=== PATIENT | female | born 1990 | race African-American/Black ===

== ENCOUNTER 2017-01-19 06:23 | Emergency (ER) | payer OTHER ==
[~2017-01-19] VITALS: Ht 157.5 cm; Wt 67.0 kg
[~2017-01-19 06:23] MED LIST: RANI150T PO
[2017-01-19 06:25] VITALS: BP 138/94; PULSE 76; RESP 16; TEMP 98.1; O2SAT 100
[2017-01-19] MEDS ORDERED: SODIUM CHLOR 0.9% 1000 ML INJ 1,000 ML IV SCH (07:08)
--- NOTE | 2017-01-19 07:13 | PD ---
HPI Chief Complaint: Chest Pain Time Seen by Provider: 07:01 Travel History International Travel<30 days: No Contact w/Intl Traveler<30days: No Traveled to known affect area: No History of Present Illness HPI The patient is a 26-year-old Jenna female who presents to the emergency department for epigastric abdominal pain and chest pain. The patient notes a 4 day history of chest pain which is located substernal, burning and pressure related, occasionally sharp, radiating to the back. She also complains of postprandial symptoms and states that spicy foods will exacerbate her symptoms. The patient does have a history of significant GERD and currently takes Protonix. The patient states she was supposed to follow-up with a human resources hr representative on an outpatient basis but has not seen a human resources hr representative as of yet. She denies any current shortness of breath, nausea, vomiting, or diarrhea. The patient denies any acute shortness of breath and states her abdominal pain is currently resolved. She also complains of a flushing feeling over the entire body over the last several days without any actual fever. Symptoms are moderate, exacerbated after eating, and there are no current alleviating factors. The patient states her last menstrual cycle was 2 weeks ago, denies . She denies any history of surgeries. She drinks alcohol occasionally. [facility] Past Medical History Narrative Medical GERD GERD: Yes Immunizations Current: Yes LMP: 01/05/17 Past Surgical History Surgical History: No Previous Surgery Social History Alcohol Use: Yes (occasional) Tobacco Use: No Substance Use: No Allergies-Medications (Allergen,Severity, Reaction): Coded Allergies: No Known Allergies (Unverified , 01/19/17) Reported Meds & Prescriptions Reported Meds & Active Scripts Active Reported Protonix (Pantoprazole Sodium) 40 Mg Tab 40 Mg PO DAILY Review of Systems Except as stated in HPI: all other systems reviewed are Neg General / Constitutional: No: Fever HENT: No: Lightheadedness Cardiovascular: Positive: Chest Pain or Discomfort Respiratory: No: Shortness of Breath Gastrointestinal: Positive: Abdominal Pain, Indigestion, No: Nausea, Vomiting , Diarrhea, Loss of Appetite Musculoskeletal: No: Myalgias, Arthralgias Skin: No Rash Physical Exam Narrative GENERAL: Awake, alert, pleasant 26-year-old female who appears her stated age and is in no acute respiratory distress. SKIN: Warm and dry. HEAD: Atraumatic. Normocephalic. EYES: Pupils equal and round. No scleral icterus. No injection or drainage. ENT: No nasal bleeding or discharge. Mucous membranes pink and moist. NECK: Trachea midline. No JVD. CARDIOVASCULAR: Regular rate and rhythm. No murmur appreciated. RESPIRATORY: No accessory muscle use. Clear to auscultation. Breath sounds equal bilaterally. GASTROINTESTINAL: Abdomen soft, mild right upper quadrant epigastric tenderness. No rebound tenderness. MUSCULOSKELETAL: No obvious deformities. No clubbing. No cyanosis. No edema. NEUROLOGICAL: Awake and alert. No obvious cranial nerve deficits. Motor grossly within normal limits. Normal speech. PSYCHIATRIC: Appropriate mood and affect; insight and judgment normal. Data Data Last Documented VS Vital Signs Date Time Temp Pulse Resp B/P Pulse Ox O2 Delivery O2 Flow Rate FiO2 01/19/17 07:24 18 100 Room Air 01/19/17 06:25 98.1 76 138/94 Orders Complete Blood Count With Diff (01/19/17 07:08) Comprehensive Metabolic Panel (01/19/17 07:08) Lipase (01/19/17 07:08) Urinalysis - C+S If Indicated (01/19/17 07:08) Us Abdomen Gallbladder (01/19/17 ) Iv Access Insert/Monitor (01/19/17 07:08) Ecg Monitoring (01/19/17 07:08) Oximetry (01/19/17 07:08) Sodium Chlor 0.9% 1000 Ml Inj (Ns 1000 M (01/19/17 07:08) Sodium Chloride 0.9% Flush (Ns Flush) (01/19/17 07:15) Electrocardiogram (01/19/17 07:08) Ed Urine Pregnancytest Poc (01/19/17 07:08) Troponin I (01/19/17 07:13) Creatine Kinase (Cpk) (01/19/17 07:13) Labs Laboratory Tests Test 01/19/17 01/19/17 07:23 07:28 Urine Color YELLOW Urine Turbidity HAZY Urine pH 5.5 Urine Specific [place] 1.022 Urine Protein TRACE mg/dL Urine Glucose (UA) NEG mg/dL Urine Ketones TRACE mg/dL Urine Occult Blood TRACE Urine Nitrite NEG Urine Bilirubin NEG Urine Urobilinogen 2.0 MG/DL Urine Leukocyte Esterase NEG Urine RBC 3 /hpf Urine WBC 1 /hpf Urine Squamous Epithelial 6 /hpf Cells Urine Mucus MANY /lpf Microscopic Urinalysis Comment CULT NOT INDICATED White Blood Count 4.7 TH/MM3 Red Blood Count 4.10 MIL/MM3 Hemoglobin 12.6 GM/DL Hematocrit 38.7 % Mean Corpuscular Volume 94.4 FL Mean Corpuscular Hemoglobin 30.6 PG Mean Corpuscular Hemoglobin 32.5 % Concent Red Cell Distribution Width 14.7 % Platelet Count 273 TH/MM3 Mean Platelet Volume 7.8 FL Neutrophils (%) (Auto) 56.3 % Lymphocytes (%) (Auto) 33.4 % Monocytes (%) (Auto) 8.7 % Eosinophils (%) (Auto) 1.1 % Basophils (%) (Auto) 0.5 % Neutrophils # (Auto) 2.7 TH/MM3 Lymphocytes # (Auto) 1.6 TH/MM3 Monocytes # (Auto) 0.4 TH/MM3 Eosinophils # (Auto) 0.1 TH/MM3 Basophils # (Auto) 0.0 TH/MM3 CBC Comment DIFF FINAL Differential Comment Sodium Level 140 MEQ/L Potassium Level 3.5 MEQ/L Chloride Level 103 MEQ/L Carbon Dioxide Level 28.3 MEQ/L Anion Gap 9 MEQ/L Blood Urea Nitrogen 6 MG/DL Creatinine 0.77 MG/DL Estimat Glomerular Filtration 111 ML/MIN Rate Random Glucose 88 MG/DL Calcium Level 8.6 MG/DL Total Bilirubin 0.9 MG/DL Aspartate Amino Transf 33 U/L (AST/SGOT) Alanine Aminotransferase 37 U/L (ALT/SGPT) Alkaline Phosphatase 70 U/L Total Creatine Kinase 107 U/L Troponin I LESS THAN 0.02 NG/ML Total Protein 7.3 GM/DL Albumin 3.7 GM/DL Lipase 233 U/L [facility] Medical Decision Making Medical Screen Exam Complete: Yes Emergency Medical Condition: Yes Medical Record Reviewed: Yes Interpretation(s) EKG reveals normal sinus rhythm with a rate of 70. Nonspecific T wave changes. Laboratory Tests Test 01/19/17 01/19/17 07:23 07:28 Urine Color YELLOW Urine Turbidity HAZY Urine pH 5.5 Urine Specific [place] 1.022 Urine Protein TRACE mg/dL Urine Glucose (UA) NEG mg/dL Urine Ketones TRACE mg/dL Urine Occult Blood TRACE Urine Nitrite NEG Urine Bilirubin NEG Urine Urobilinogen 2.0 MG/DL Urine Leukocyte Esterase NEG Urine RBC 3 /hpf Urine WBC 1 /hpf Urine Squamous Epithelial 6 /hpf Cells Urine Mucus MANY /lpf Microscopic Urinalysis Comment CULT NOT INDICATED White Blood Count 4.7 TH/MM3 Red Blood Count 4.10 MIL/MM3 Hemoglobin 12.6 GM/DL Hematocrit 38.7 % Mean Corpuscular Volume 94.4 FL Mean Corpuscular Hemoglobin 30.6 PG Mean Corpuscular Hemoglobin 32.5 % Concent Red Cell Distribution Width 14.7 % Platelet Count 273 TH/MM3 Mean Platelet Volume 7.8 FL Neutrophils (%) (Auto) 56.3 % Lymphocytes (%) (Auto) 33.4 % Monocytes (%) (Auto) 8.7 % Eosinophils (%) (Auto) 1.1 % Basophils (%) (Auto) 0.5 % Neutrophils # (Auto) 2.7 TH/MM3 Lymphocytes # (Auto) 1.6 TH/MM3 Monocytes # (Auto) 0.4 TH/MM3 Eosinophils # (Auto) 0.1 TH/MM3 Basophils # (Auto) 0.0 TH/MM3 CBC Comment DIFF FINAL Differential Comment Sodium Level 140 MEQ/L Potassium Level 3.5 MEQ/L Chloride Level 103 MEQ/L Carbon Dioxide Level 28.3 MEQ/L Anion Gap 9 MEQ/L Blood Urea Nitrogen 6 MG/DL Creatinine 0.77 MG/DL Estimat Glomerular Filtration 111 ML/MIN Rate Random Glucose 88 MG/DL Calcium Level 8.6 MG/DL Total Bilirubin 0.9 MG/DL Aspartate Amino Transf 33 U/L (AST/SGOT) Alanine Aminotransferase 37 U/L (ALT/SGPT) Alkaline Phosphatase 70 U/L Total Creatine Kinase 107 U/L Troponin I LESS THAN 0.02 NG/ML Total Protein 7.3 GM/DL Albumin 3.7 GM/DL Lipase 233 U/L Last Impressions Gall Bladder Ultrasound 01/19/17 0000 Signed Impressions: Service Date/Time: Thursday, January 19, 2017 07:53 - CONCLUSION: Normal examination. Suleiman Tam Jr., MD Differential Diagnosis Differential diagnosis includes GERD, gastritis, esophageal spasm, biliary colic , cholecystitis, pancreatitis, Narrative Course IV was established, labs were drawn and sent, and the patient was placed on cardiac telemetry monitoring and continuous pulse oximetry monitoring. EKG was ordered and interpreted. Ultrasound the gallbladder was ordered. The patient' s currently asymptomatic, therefore, no acute pain medications or antiemetics were administered. Bedside UA test is negative. UA reveals trace ketones and blood, otherwise unremarkable. White count is normal. The patient' s complete metabolic profile is unremarkable. Lipase is within normal limits. Troponin and CPK are normal. Ultrasound of the gallbladder is unremarkable. The patient is advised to follow-up with gastroenterology on an outpatient basis , she may benefit from further evaluation by EGD. The patient will be provided a copy of her labs and ultrasound report at discharge and is advised to follow- up with gastroenterology and her primary physician. Diagnosis Primary Impression: GERD (gastroesophageal reflux disease) Qualified Code: K21.9 - Gastroesophageal reflux disease, esophagitis presence not specified Additional Impression: Atypical chest pain Patient Instructions: General Instructions Additional Instructions: Continue Protonix as previously directed. Please provide a patient a copy of her ultrasound results and lab results at discharge. Follow-up with gastroenterology. Return if symptoms worsen or progress. Disposition: 01 DISCHARGE HOME Condition: Stable Humza Chatman MD Jan 19, 2017 07:13
[2017-01-19] MEDS ORDERED: SODIUM CHLORIDE 0.9% FLUSH 10 ML FLUSH IV FLUSH PRN (07:15)
[2017-01-19 07:19] VITALS: O2SAT 100
[2017-01-19] MEDS ORDERED: PROT40TA PO (07:25)
[2017-01-19 07:38] LABS: AUTOMATED NEUTROPHIL # 2.7 TH/MM3 (1.8-7.7); BASOPHIL % 0.5 % (0.0-2.0); EOSINOPHIL # 0.1 TH/MM3 (0-0.4); EOSINOPHIL % 1.1 % (0.0-4.0); HEMATOCRIT 38.7 % (35.0-46.0); HEMO FLAGS DIFF FINAL; LYMPH % 33.4 % (9.0-44.0); LYMPHOCYTE # 1.6 TH/MM3 (1.0-4.8); MEAN CELL VOLUME 94.4 FL (80.0-100.0); MEAN CORPUSCULAR HEMOGLOBIN 30.6 PG (27.0-34.0); MEAN CORPUSCULAR HGB CONC 32.5 % (32.0-36.0); MONO % 8.7 % (0.0-8.0); NEUT % 56.3 % (16.0-70.0); PLATELET COUNT 273 TH/MM3 (150-450); RED CELL DISTRIBUTION WIDTH 14.7 % (11.6-17.2); WHITE BLOOD COUNT 4.7 TH/MM3 (4.0-11.0)
[2017-01-19 07:48] LABS: BLOOD, URINE TRACE (NEG); COMMENT (UR) CULT NOT INDICATED; CULTURE IF INDICATED CULT NOT INDICATED; GLUCOSE,URINE NEG (NEG); KETONE, URINE TRACE mg/dL (NEG); MUCUS URINE MANY /lpf (OCC); NITRITE,URINE NEG (NEG); PH, URINE 5.5 (5.0-8.5); SQUAMOUS EPITHELIAL CELL URINE 6 /hpf (0-5); URINE COLOR YELLOW (YELLW/STRAW)
[2017-01-19 07:53] LABS: ANION GAP 9 MEQ/L (5-15); AST (GOT) 33 U/L (15-37); BICARBONATE 28.3 MEQ/L (21.0-32.0); BLOOD UREA NITROGEN 6 MG/DL (7-18); CHLORIDE 103 MEQ/L (98-107); GLOMERULAR FILTRATION RATE 111 ML/MIN (>89); POTASSIUM 3.5 MEQ/L (3.5-5.1); SODIUM (NA) 140 MEQ/L (136-145)
[2017-01-19 07:56] LABS: ALKALINE PHOSPHATASE 70 U/L (45-117); ALT (GPT) 37 U/L (10-53); CREATINE KINASE 107 U/L (26-192); TOTAL BILIRUBIN ADULT 0.9 MG/DL (0.2-1.0)
--- NOTE | 2017-01-19 08:49 | RADRPT ---
EXAM DATE/TIME: 01/19/2017 07:53 [facility] COMPARISON: No previous studies available for comparison. INDICATIONS : Right upper quadrant pain. MEDICAL HISTORY : Gastroesophageal reflux disease. Polycystic ovarian syndrome. SURGICAL HISTORY : ENCOUNTER: Initial ACUITY: 4-6 days PAIN SCORE: 4/10 LOCATION: Right upper quadrant MEASUREMENTS: LIVER: 15.0 cm length COMMON DUCT: 4 mm RIGHT KIDNEY: 11.1 x 4.2 x 4.0 cm FINDINGS: LIVER: Normal echotexture without focal lesion or ductal dilatation. COMMON DUCT: No intraluminal mass or stone visualized. GALLBLADDER: Contains no stones, demonstrates no wall thickening or pericholecystic fluid. PANCREAS: The visualized portions are within normal limits. RIGHT KIDNEY: No evidence of hydronephrosis, stone, or mass. CONCLUSION: Normal examination. Suleiman Tam Jr., MD on January 19, 2017 at 8:45 Board Certified Radiologist. This report was verified electronically.
[2017-01-19 09:39] VITALS: BP 128/71
--- NOTE | 2017-01-20 21:42 | EKG ---
Date Performed: 01/19/2017 Time Performed: 07:15:14 PTAGE: 26 years EKG: Sinus rhythm NONSPECIFIC T-WAVE ABNORMALITY Since previous tracing, no significant change noted BORDERLINE ECG PREVIOUS TRACING : 10/19/2016 19.36 DOCTOR: Siena Malik Interpretating Date/Time 01/20/2017 21:41:13
== END 2017-01-19 09:41 | disposition home or self-care (01) ==
LOC: NEPE 06:23
DX: K21.9 Gastro-esophageal reflux disease without esophagitis (principal); R07.89 Other chest pain; R94.31 Abnormal electrocardiogram [ECG] [EKG]; Z87.19 Personal history of other diseases of the digestive system
CPT/HCPCS: 76705; 80053; 81001; 82550; 83690; 84484; 84703; 85025; 93005; 96360; 99285; J7030

== ENCOUNTER 2017-05-23 21:52 | Emergency (ER) | payer OTHER ==
[~2017-05-23] VITALS: Ht 160 cm; Wt 63.5 kg
[~2017-05-23 21:52] MED LIST changes: +PROT40TA PO; -RANI150T PO
[2017-05-23 21:54] VITALS: BP 111/66; PULSE 96; RESP 15; TEMP 98.3; O2SAT 97
--- NOTE | 2017-05-23 22:43 | PD ---
HPI Chief Complaint: Headache Time Seen by Provider: 22:34 Travel History International Travel<30 days: No Contact w/Intl Traveler<30days: No Traveled to known affect area: No History of Present Illness HPI 27 years old female was brought in by mom for lethargy. Patient has history alcohol abuse. Mother states that patient got drunk at least 3 times a week for the past year. Patient states that she had mild aching headache. Patient denies any visual change. Patient denies any chest pain or shortness of breath. Patient denies abdominal pain. Mom reported no vomiting or diarrhea. PFSH Past Medical History Medical History: Denies Significant Hx GERD: Yes Reproductive: Yes (POLYCYSTIC OVARIAN DX) Immunizations Current: Yes Tetanus Vaccination: < 5 Years Influenza Vaccination: No ?: Unknown LMP: 04/28/17 Past Surgical History Surgical History: No Previous Surgery Social History Alcohol Use: Yes (couple shots a week) Tobacco Use: No Substance Use: No Allergies-Medications (Allergen,Severity, Reaction): Coded Allergies: No Known Allergies (Unverified , 05/23/17) Reported Meds & Prescriptions Reported Meds & Active Scripts Active No Active Prescriptions or Reported Medications Review of Systems General / Constitutional: No: Fever Eyes: No: Visual changes HENT: Positive: Headaches Cardiovascular: No: Chest Pain or Discomfort Respiratory: No: Shortness of Breath Gastrointestinal: No: Abdominal Pain Genitourinary: No: Dysuria Musculoskeletal: No: Pain Skin: No Rash Neurologic: No: Weakness Psychiatric: No: Depression Endocrine: No: Polydipsia Hematologic/Lymphatic: No: Easy Bruising Physical Exam Narrative GENERAL: Well-nourished, well-developed patient. SKIN: Focused skin assessment warm/dry. HEAD: Normocephalic. EYES: No scleral icterus. No injection or drainage. Pupils 3 mm equal reactive. NECK: Supple, trachea midline. No JVD or lymphadenopathy. CARDIOVASCULAR: Regular rate and rhythm without murmurs, gallops, or rubs. RESPIRATORY: Breath sounds equal bilaterally. No accessory muscle use. GASTROINTESTINAL: Abdomen soft, non-tender, nondistended. MUSCULOSKELETAL: No cyanosis, or edema. BACK: Nontender without obvious deformity. No CVA tenderness. Neurologic exam: Patient is lethargic however answer questions appropriately. Patient moves all extremity well. No obvious focal neurological deficit. Data Data Last Documented VS Vital Signs Date Time Temp Pulse Resp B/P Pulse Ox O2 Delivery O2 Flow Rate FiO2 05/23/17 21:54 98.3 96 15 111/66 97 Room Air Orders Complete Blood Count With Diff (05/23/17 22:39) Comprehensive Metabolic Panel (05/23/17 22:39) Lipase (05/23/17 22:39) Urinalysis - C+S If Indicated (05/23/17 22:39) Beta Hcg (Quant/Titer) (05/23/17 22:39) Iv Access Insert/Monitor (05/23/17 22:39) Ecg Monitoring (05/23/17 22:39) Oximetry (05/23/17 22:39) Drug Screen, Random Urine (05/23/17 22:39) Alcohol (Ethanol) (05/23/17 22:39) Sodium Chlor 0.9% 1000 Ml Inj (Ns 1000 M (05/23/17 22:45) Thiamine Inj (Thiamine Inj) (05/23/17 22:45) Labs Laboratory Tests Test 05/23/17 05/23/17 22:50 23:00 Urine Color LIGHT-YELLOW Urine Turbidity CLEAR Urine pH 5.0 Urine Specific [place] 1.014 Urine Protein NEG mg/dL Urine Glucose (UA) NEG mg/dL Urine Ketones NEG mg/dL Urine Occult Blood NEG Urine Nitrite NEG Urine Bilirubin NEG Urine Urobilinogen LESS THAN 2.0 MG/DL Urine Leukocyte Esterase NEG Urine RBC LESS THAN 1 /hpf Urine WBC 1 /hpf Urine Squamous Epithelial 1 /hpf Cells Urine Mucus FEW /lpf Microscopic Urinalysis Comment CULT NOT INDICATED Urine Opiates Screen NEG Urine Barbiturates Screen NEG Urine Amphetamines Screen NEG Urine Benzodiazepines Screen NEG Urine Cocaine Screen NEG Urine Cannabinoids Screen NEG White Blood Count 4.6 TH/MM3 Red Blood Count 4.63 MIL/MM3 Hemoglobin 14.6 GM/DL Hematocrit 44.9 % Mean Corpuscular Volume 96.9 FL Mean Corpuscular Hemoglobin 31.5 PG Mean Corpuscular Hemoglobin 32.5 % Concent Red Cell Distribution Width 14.8 % Platelet Count 385 TH/MM3 Mean Platelet Volume 7.5 FL Neutrophils (%) (Auto) 26.4 % Lymphocytes (%) (Auto) 64.8 % Monocytes (%) (Auto) 7.4 % Eosinophils (%) (Auto) 0.5 % Basophils (%) (Auto) 0.9 % Neutrophils # (Auto) 1.2 TH/MM3 Lymphocytes # (Auto) 3.0 TH/MM3 Monocytes # (Auto) 0.3 TH/MM3 Eosinophils # (Auto) 0.0 TH/MM3 Basophils # (Auto) 0.0 TH/MM3 CBC Comment AUTO DIFF Differential Comment AUTO DIFF CONFIRMED Platelet Estimate NORMAL Platelet Morphology Comment NORMAL Red Cell Morphology Comment NORMAL Sodium Level 144 MEQ/L Potassium Level 3.7 MEQ/L Chloride Level 109 MEQ/L Carbon Dioxide Level 25.7 MEQ/L Anion Gap 9 MEQ/L Blood Urea Nitrogen 13 MG/DL Creatinine 0.98 MG/DL Estimat Glomerular Filtration 83 ML/MIN Rate Random Glucose 78 MG/DL Calcium Level 8.8 MG/DL Total Bilirubin 0.4 MG/DL Aspartate Amino Transf 34 U/L (AST/SGOT) Alanine Aminotransferase 34 U/L (ALT/SGPT) Alkaline Phosphatase 81 U/L Total Protein 8.3 GM/DL Albumin 4.0 GM/DL Lipase 117 U/L Human Chorionic Gonadotropin, LESS THAN 1 Quant MIU/ML Ethyl Alcohol Level 406 MG/DL [facility] Medical Decision Making Medical Screen Exam Complete: Yes Emergency Medical Condition: Yes Interpretation(s) 23:42 PM. CBC within normal limit. CMP within normal limits. Beta hCG negative. Alcohol 406. Urine drug screen negative. UA is negative. Differential Diagnosis Differential diagnosis including alcohol intoxication, substance abuse, electrolyte abnormality, dehydration, TIA, CVA, sepsis. Narrative Course 27 year old female with altered mental status. History of EtOH abuse. Normal saline solution 1 25 cc an hour. Thiamine 100 mg IV. Diagnosis Primary Impression: Alcohol intoxication Qualified Code: F10.920 - Alcohol intoxication, uncomplicated Patient Instructions: General Instructions Additional Instructions: Advised [facility]. Patient will be sent home with her mother. Med/Other Pt SpecificInfo: No Change to Meds Scripts No Active Prescriptions or Reported Meds Disposition: DISCHARGE HOME Condition: Stable Andrew Roth MD May 23, 2017 22:43
[2017-05-23] MEDS ORDERED: THIAMINE INJ 100 MG in SODIUM CHLORIDE 0.9% INJ 100 ML IV ONE (22:45)
[2017-05-23] MEDS ORDERED: SODIUM CHLOR 0.9% 1000 ML INJ 1,000 ML IV SCH (22:45)
[2017-05-23 23:15] LABS: AUTOMATED NEUTROPHIL # 1.2 TH/MM3 (1.8-7.7); BASOPHIL % 0.9 % (0.0-2.0); EOSINOPHIL % 0.5 % (0.0-4.0); HEMATOCRIT 44.9 % (35.0-46.0); LYMPH % 64.8 % (9.0-44.0); MEAN CELL VOLUME 96.9 FL (80.0-100.0); MEAN CORPUSCULAR HEMOGLOBIN 31.5 PG (27.0-34.0); MEAN CORPUSCULAR HGB CONC 32.5 % (32.0-36.0); MONO % 7.4 % (0.0-8.0); NEUT % 26.4 % (16.0-70.0); PLATELET COUNT 385 TH/MM3 (150-450); RED BLOOD COUNT 4.63 MIL/MM3 (4.00-5.30); RED CELL DISTRIBUTION WIDTH 14.8 % (11.6-17.2); WHITE BLOOD COUNT 4.6 TH/MM3 (4.0-11.0)
[2017-05-23 23:17] LABS: HEMO FLAGS AUTO DIFF
[2017-05-23 23:19] LABS: BLOOD, URINE NEG (NEG); COMMENT (UR) CULT NOT INDICATED; CULTURE IF INDICATED CULT NOT INDICATED; GLUCOSE,URINE NEG (NEG); KETONE, URINE NEG (NEG); MUCUS URINE FEW /lpf (OCC); NITRITE,URINE NEG (NEG); SQUAMOUS EPITHELIAL CELL URINE 1 /hpf (0-5); URINE COLOR LIGHT-YELLOW (YELLW/STRAW)
[2017-05-23 23:26] LABS: AMPHETAMINE, URINE NEG (NEG); BARBITURATES, URINE NEG (NEG); COCAINE, URINE NEG (NEG)
[2017-05-23 23:29] LABS: ALT (GPT) 34 U/L (10-53); ANION GAP 9 MEQ/L (5-15); AST (GOT) 34 U/L (15-37); BICARBONATE 25.7 MEQ/L (21.0-32.0); BLOOD UREA NITROGEN 13 MG/DL (7-18); CHLORIDE 109 MEQ/L (98-107); GLOMERULAR FILTRATION RATE 83 ML/MIN (>89); POTASSIUM 3.7 MEQ/L (3.5-5.1); SODIUM (NA) 144 MEQ/L (136-145)
[2017-05-23 23:34] LABS: ALKALINE PHOSPHATASE 81 U/L (45-117); BETA HCG QUANT LESS THAN 1 MIU/ML (0-5); TOTAL BILIRUBIN ADULT 0.4 MG/DL (0.2-1.0)
[2017-05-23 23:38] LABS: PLATELET ESTIMATE SMEAR NORMAL (NORMAL); PLATELET MORPHOLOGY NORMAL (NORMAL); SCAN/DIFF AUTO DIFF CONFIRMED
== END 2017-05-24 00:19 | disposition home or self-care (01) ==
LOC: NEPD 21:52
DX: F10.920 Alcohol use, unspecified with intoxication, uncomplicated (principal)
CPT/HCPCS: 80053; 80307; 81001; 83690; 84702; 85025; 96374; 99284; J3411; J7030

== ENCOUNTER 2017-12-03 14:20 | Emergency (ER) | payer OTHER ==
[~2017-12-03] VITALS: Ht 162.6 cm; Wt 60.0 kg
[2017-12-03 14:31] VITALS: BP 120/71; PULSE 110; RESP 16; TEMP 98.2; O2SAT 99
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
[2017-12-03] MEDS ORDERED: SILVER SULFADIAZINE 1% CR 50 GM JAR TOPICAL ONE (15:30)
--- NOTE | 2017-12-03 16:21 | RADRPT ---
EXAM DATE/TIME: 12/03/2017 15:47 [facility] COMPARISON: CHEST PA & LAT, October 19, 2016, 20:02. INDICATIONS : Evaluate lung status. Short of breath. MEDICAL HISTORY : Gastroesophageal reflux disease. Polycystic ovarian syndrome. SURGICAL HISTORY : None. ENCOUNTER: Initial ACUITY: 1 day PAIN SCORE: 0/10 LOCATION: Bilateral chest FINDINGS: A single view of the chest demonstrates the lungs to be symmetrically aerated without evidence of mas s, infiltrate or effusion. The cardiomediastinal contours are unremarkable. Osseous structures are intact. CONCLUSION: 1. No acute cardiopulmonary findings. Faisal Rothman MD on December 03, 2017 at 16:18 Board Certified Radiologist. This report was verified electronically.
--- NOTE | 2017-12-03 16:42 | RADRPT ---
EXAM DATE/TIME: 12/03/2017 15:49 [facility] COMPARISON: No previous studies available for comparison. INDICATIONS : Evaluate pelvis. MEDICAL HISTORY : Gastroesophageal reflux disease. Polycystic ovarian syndrome. SURGICAL HISTORY : None. ENCOUNTER: Initial ACUITY: 1 day PAIN SCORE: 0/10 LOCATION: Pelvis. FINDINGS: A single frontal view of the pelvis demonstrates no evidence of fracture. The bony pelvic ring is in tact. Bony mineralization is normal. The soft tissues are intact. CONCLUSION: No acute disease. Matt Snyder MD on December 03, 2017 at 16:39 Board Certified Radiologist. This report was verified electronically.
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
[2017-12-03 17:50] VITALS: BP 110/63; PULSE 98; RESP 19; O2SAT 98
[2017-12-03] MEDS ORDERED: SILV1CRE20 TOPICAL (19:25)
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
[2017-12-03] MEDS ORDERED: SILVER SULFADIAZINE 1% CR 400 GM JAR TOPICAL ONE (19:30)
[2017-12-03] MEDS ORDERED: TETANUS/DIPHTHERIA TOXOID ADULT 0.5 ML VIAL IM ONE (19:30)
[2017-12-04] MEDS ORDERED: TYLETAB34 PO (13:04)
[2017-12-04] MEDS ORDERED: DICL75TA PO (13:04)
== END 2017-12-03 20:14 | disposition home or self-care (01) ==
LOC: NEPD 14:20
DX: F10.129 Alcohol abuse with intoxication, unspecified (principal); T24.012A Burn of unspecified degree of left thigh, initial encounter; T24.202A Burn of second degree of unspecified site of left lower limb, except ankle and foot, initial encounter; X08.8XXA Exposure to other specified smoke, fire and flames, initial encounter; V49.40XA Driver injured in collision with unspecified motor vehicles in traffic accident, initial encounter; Y90.8 Blood alcohol level of 240 mg/100 ml or more; Z23 Encounter for immunization
CPT/HCPCS: 16020; 71045; 72170; 80307; 84703; 90471; 90714

== ENCOUNTER 2017-12-04 11:07 | Emergency (ER) | payer OTHER ==
[~2017-12-04] VITALS: Ht 160 cm; Wt 65.0 kg
[~2017-12-04 11:07] MED LIST changes: -PROT40TA PO; +SILV1CRE20 TOPICAL
[2017-12-04 11:08] VITALS: BP 126/76; PULSE 105; RESP 18; TEMP 98.7; O2SAT 98
[2017-12-04] MEDS ORDERED: DICL75TA PO (13:04)
[2017-12-04] MEDS ORDERED: TYLETAB34 PO (13:04)
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
[2017-12-04] MEDS ORDERED: KETOROLAC TROMETHAMINE 60 MG/2 ML (IM) VIAL IM ONE (13:15)
== END 2017-12-04 13:16 | disposition home or self-care (01) ==
LOC: NEPD 11:07
DX: T24.212D Burn of second degree of left thigh, subsequent encounter (principal); S90.812D Abrasion, left foot, subsequent encounter; S90.811D Abrasion, right foot, subsequent encounter; V89.2XXD Person injured in unspecified motor-vehicle accident, traffic, subsequent encounter; K21.9 Gastro-esophageal reflux disease without esophagitis; E28.2 Polycystic ovarian syndrome
CPT/HCPCS: 99281